=== PATIENT | female | born 1990 | race Caucasian/White ===

== ENCOUNTER 2018-04-30 16:51 | Emergency (ER) | payer SELFPAY ==
[~2018-04-30] VITALS: Ht 154.9 cm; Wt 63.5 kg
[~2018-04-30 16:51] MED LIST: ACHD5005 PO; CYCL10TA9 PO; DCS100C PO; DOCU100C37 PO; FERR325T18 PO; FRS325T PO; HYDR-3729 PO; IBP600T1 PO; IBUP-1773 PO; MAGN400T6 PO; METO-310 PO; POTA10TA36 PO; PREN1TAB14 PO; PROM25TA14 PO; TAMS0.4C98 PO
[2018-04-30] MEDS ORDERED: IBUPROFEN TABLET 200 MG TAB PO STA (17:13)
[2018-04-30] MEDS ORDERED: CIPR-225 PO (17:18)
--- NOTE | 2018-04-30 17:19 | ED Integumentary General ---
General Chief Complaint: Skin/Wound Problems Stated Complaint: SOME KIND OF BUG BITE RIGHT LEG History of Present Illness Date Seen by Provider: Apr 30, 2018 Time Seen by Provider: 17:05 Initial Comments 28-year-old female noted a bite to her right popliteal region. Over the last 2 days it has progressively gotten worse with increased erythema, bruising at the center and pain. Timing/Duration: yesterday, getting worse Possible Cause: insect bite (unsure if it was a spider, tick or other insect) Associated Symptoms: denies symptoms Allergies and Home Medications Allergies Coded Allergies: No Known Allergies (Verified Allergy, Unknown, 12/05/07) Home Medications Ciprofloxacin HCl 500 Mg Tablet, 500 MG PO BID Prescribed by: TESS POWELL on 04/30/181717 Cyclobenzaprine HCl 10 Mg Tablet, 10 MG PO PRN, (Reported) Docusate Sodium 100 Mg Capsule, 100 MG PO BID PRN for CONSTIPATION Prescribed by: LETY GABRIEL on 08/06/16837 Ferrous Sulfate 325 Mg Tablet, 325 MG PO BID WITH MEALS Prescribed by: LETY GABRIEL on 08/06/16837 Hydrocodone Bit/Acetaminophen 1 Each Tablet, 0 TAB PO Q4H PRN for PAIN Prescribed by: LETY GABRIEL on 08/06/16837 Ibuprofen 600 Mg Tablet, 600 MG PO Q6H Prescribed by: LETY GABRIEL on 08/06/16837 Magnesium Oxide 400 Mg Tablet, 400 MG PO DAILY, (Reported) Potassium Chloride 10 Meq Tab.er.prt, 10 MEQ PO DAILY, (Reported) Vits W-Ca,Fe,Fa(<1MG) 1 Each Tablet, 1 EACH PO DAILY, (Reported) Promethazine HCl 25 Mg Tablet, 25 MG PO Q4H PRN for NAUSEA/VOMITING, (Reported) Patient Home Medication List Home Medication List Reviewed: Yes Constitutional: no symptoms reported, see HPI Skin: see HPI, change in color, lesions (right popliteal space) Past Ksxnnde-Ipqlsf-Cxucjq Hx Past Med/Social Hx: Reviewed Nursing Past Med/Soc Hx Patient Social History Alcohol Use: Denies Use Recreational Drug Use: No Smoking Status: Never a Smoker Recent Foreign Travel: No Contact w/Someone Who Travel: No Recent Hopitalizations: No Immunizations Up To Date Tetanus Booster (TDap): Less than 5yrs PED Vaccines UTD: Yes Date of Influenza Vaccine: Jul 26, 2016 Seasonal Allergies Seasonal Allergies: No Past Medical History Surgeries: Yes Section Respiratory: No Cardiac: No Neurological: No Reproductive Disorders: No Kidney Stones Gastrointestinal: No Musculoskeletal: No Endocrine: No Loss of Vision: Denies Hearing Impairment: Denies Cancer: No Psychosocial: No Integumentary: No Blood Disorders: Yes (ANEMIA) Adverse Reaction/Blood Tranf: No (hx of transfusion after 1st delivery) Family Medical History Arthritis 19 FATHER 19 MOTHER Asthma G8 BROTHER G8 SISTER Cardiovascular disease 19 FATHER 19 MOTHER Dementia 19 MOTHER Diabetes mellitus 19 MOTHER Hypertension 19 FATHER 19 MOTHER G8 BROTHER Kidney disease G8 BROTHER Physical Exam Vital Signs Vital Signs - First Documented 04/30/18 17:03 Temp 97.4 Pulse 91 Resp 18 B/P (MAP) 120/83 (95) Pulse Ox 98 Capillary Refill : General Appearance: WD/WN, no apparent distress Cardiovascular: normal peripheral pulses, regular rate, rhythm Respiratory: chest non-tender, lungs clear, normal breath sounds Gastrointestinal: normal bowel sounds, non tender, soft Extremities: normal range of motion, non-tender, normal capillary refill Neurologic/Psychiatric: no motor/sensory deficits, alert, normal mood/affect, oriented x 3 Skin: normal color, warm/dry Skin Problem Location: lower extremities (right popliteal) Skin Problem Character: erythema, papules (annular lesion right popliteal space measuring 5 x 6 cm, entire lesion erythematous with central puncture site. Mild warmth, no induration or fluctuance. No pruritus and minimal pain) Lymphatic: no adenopathy; No inguinal node tender (R) Progress/Results/Core Measures Results/Orders Lab Results Laboratory Tests Test 04/30/18 17:19 Range/Units My Orders Orders - TESS POWELL Tick Panel With Lyme Eia (04/30/18 17:13) Ibuprofen Tablet (Motrin Tablet) (04/30/18 17:13) Vital Signs/I&O 04/30/18 04/30/18 17:03 17:41 Temp 97.4 97.4 Pulse 91 91 Resp 18 18 B/P (MAP) 120/83 (95) 120/83 (95) Pulse Ox 98 98 Departure Impression Primary Impression: Insect bite of right lower extremity Qualified Codes: S80.861A - Insect bite (nonvenomous), right lower leg, initial encounter; W57.XXXA - Bitten or stung by nonvenomous insect and other nonvenomous arthropods, initial encounter Disposition: HOME, SELF-CARE Condition: Improved Departure-Patient Inst. Decision time for Depature: 17:20 Referrals: MYRTLE BRUMFIELD DO (PCP/Family) Primary Care Physician Patient Instructions: Cellulitis (Skin Infection), Adult (DC), Insect Bites and Stings (DC) Add. Discharge Instructions: Take Cipro as prescribed. Follow up with your primary care provider or the walk-in clinic at [facility] in 2-3 days. Apply ice packs to the right posterior knee 20 minutes every 2 hours. Do not apply any heat to this area. You may alternate every 4 hours between Tylenol 650 mg and ibuprofen 600 mg for fever or pain. Return to emergency department for new, acute health care problems. All discharge instructions reviewed with patient and/or family. Voiced understanding. Scripts Ciprofloxacin HCl (Cipro) 500 Mg Tablet 500 MG PO BID, #20 TAB 0 Refills Prov: TESS POWELL 04/30/18 Work/School Note: Work Release Form Date Seen in the Emergency Department: Apr 30, 2018 Return to Work: May 02, 2018 Restrictions: No Restrictions TESS POWELL Apr 30, 2018 17:19
[2018-04-30 17:41] VITALS: BP 120/83
== END 2018-04-30 17:41 | disposition home or self-care (01) ==
LOC: EDUNIT# 16:51 → ER 16:53
DX: S80.861A Insect bite (nonvenomous), right lower leg, initial encounter (principal); D64.9 Anemia, unspecified; Z82.49 Family history of ischemic heart disease and other diseases of the circulatory system; Z87.442 Personal history of urinary calculi; Z87.59 Personal history of other complications of pregnancy, childbirth and the puerperium; W57.XXXA Bitten or stung by nonvenomous insect and other nonvenomous arthropods, initial encounter
CPT/HCPCS: 36415; 86618; 86666; 86668; 86757; 99283